=== PATIENT | female | born 1955 | race Caucasian/White ===

== ENCOUNTER 2017-05-22 18:15 | Emergency (ER) | payer SELFPAY ==
[2017-05-22 19:46] VITALS: BP 138/88
== END 2017-05-22 19:46 | disposition home or self-care (01) ==
LOC: ED 18:15
DX: S61.511A Laceration without foreign body of right wrist, initial encounter (principal); F17.200 Nicotine dependence, unspecified, uncomplicated; F17.210 Nicotine dependence, cigarettes, uncomplicated; Z91.041 Radiographic dye allergy status; W45.8XXA Other foreign body or object entering through skin, initial encounter; Y93.89 Activity, other specified; Y92.89 Other specified places as the place of occurrence of the external cause; Y99.8 Other external cause status
CPT/HCPCS: 90715; J2001

== ENCOUNTER 2019-09-16 17:24 | Inpatient (IN) | payer BC ==
[~2019-09-16] VITALS: Ht 162.6 cm; Wt 83.5 kg
[2019-09-16 18:09] LABS: BASOPHIL % 0.4 % (0-2); PLATELET COUNT 201 x10^3mcL (130-400); RED CELL DISTRIBUTION WIDTH 13.8 % (11.5-14.5)
[2019-09-16 18:12] LABS: CALCIUM 9.3 mg/dL (8.5-10.1); CARBON DIOXIDE 23.8 mmol/L (21-32); CHLORIDE SERUM 106 mmol/L (98-107); CREATININE SERUM 0.8 mg/dL (0.6-1.0); GFR1 > 60 mL/min; GLUCOSE SERUM 134 mg/dL (74-106); POTASSIUM SERUM 3.6 mmol/L (3.5-5.1); SODIUM SERUM 142 mmol/L (136-145)
[2019-09-16 18:16] LABS: ALKALINE PHOSPHATASE 98 U/L (46-116); ALT/SGPT 52 U/L (14-59); AST/SGOT 37 U/L (15-37); BILIRUBIN TOTAL 0.32 mg/dL (0.20-1.00); TOTAL PROTEIN, SERUM 7.7 g/dL (6.4-8.2)
[2019-09-16 19:26] LABS: CHOLESTEROL/HDL RATIO 4.9
[2019-09-16 20:15] LABS: microscopic required? YES; urine erythrocyte NEGATIVE (NEGATIVE)
[2019-09-16 20:25] LABS: AMPHETAMINE QUAL UR NONE DETECTED (See below)
[2019-09-16 21:10] VITALS: BP 135/78
[2019-09-17 04:55] VITALS: BP 141/80
[2019-09-17 05:42] VITALS: BP 114/65
[2019-09-17 06:25] LABS: BASOPHIL % 0.3 % (0-2); PLATELET COUNT 189 x10^3mcL (130-400); RED CELL DISTRIBUTION WIDTH 13.5 % (11.5-14.5)
[2019-09-17 06:58] LABS: CALCIUM 8.8 mg/dL (8.5-10.1); CARBON DIOXIDE 28.2 mmol/L (21-32); CHLORIDE SERUM 107 mmol/L (98-107); CREATININE SERUM 0.8 mg/dL (0.6-1.0); GFR1 > 60 mL/min; GLUCOSE SERUM 97 mg/dL (74-106); MAGNESIUM 2.2 mg/dL (1.8-2.4); PHOSPHOROUS 3.6 mg/dL (2.5-4.9); POTASSIUM SERUM 4.2 mmol/L (3.5-5.1); SODIUM SERUM 142 mmol/L (136-145)
[2019-09-17 08:30] VITALS: BP 124/70
[2019-09-17 12:14] VITALS: BP 138/69
[2019-09-17 16:45] VITALS: BP 136/74
[2019-09-17 21:00] VITALS: BP 128/56
[2019-09-18 05:34] VITALS: BP 113/68
[2019-09-18 05:58] VITALS: BP 133/78
[2019-09-18 06:08] LABS: BASOPHIL % 0.3 % (0-2); PLATELET COUNT 179 x10^3mcL (130-400); RED CELL DISTRIBUTION WIDTH 13.6 % (11.5-14.5)
[2019-09-18 06:23] LABS: CALCIUM 8.5 mg/dL (8.5-10.1); CARBON DIOXIDE 26.8 mmol/L (21-32); CHLORIDE SERUM 110 mmol/L (98-107); CREATININE SERUM 0.6 mg/dL (0.6-1.0); GFR1 > 60 mL/min; GLUCOSE SERUM 98 mg/dL (74-106); MAGNESIUM 2.3 mg/dL (1.8-2.4); PHOSPHOROUS 3.6 mg/dL (2.5-4.9); POTASSIUM SERUM 3.6 mmol/L (3.5-5.1); SODIUM SERUM 145 mmol/L (136-145)
[2019-09-18 08:57] VITALS: BP 122/63
[2019-09-18] MEDS ORDERED: GOOD SENSE ASPI81 M3 PO (11:56)
[2019-09-18] MEDS ORDERED: LIPITOR40 MG PO (11:56)
[2019-09-18] MEDS ORDERED: ASPIR LOW81 MG PO (12:27)
[2019-09-18] MEDS ORDERED: ATORVASTATIN CA40 M1 PO (12:27)
[2019-09-18 12:36] VITALS: BP 122/63
== END 2019-09-18 13:03 | disposition home or self-care (01) | DRG 69 ==
LOC: ED 17:24 → DU 18:38
PROVIDERS: Emergency Medicine; ADMIT Internal Medicine
DX: G45.9 Transient cerebral ischemic attack, unspecified (principal); F17.210 Nicotine dependence, cigarettes, uncomplicated; E78.5 Hyperlipidemia, unspecified; Z72.89 Other problems related to lifestyle; Z82.49 Family history of ischemic heart disease and other diseases of the circulatory system; Z71.6 Tobacco abuse counseling; Z79.899 Other long term (current) drug therapy
CPT/HCPCS: 92526-GN; 92610-GN; G0378; J0696; J1644; J7030; J7050; Q0092